=== PATIENT | female | born 1965 | race African-American/Black ===

== ENCOUNTER 2016-12-12 00:41 | Emergency (ER) | payer SELFPAY ==
[2016-12-12 00:45] VITALS: BP 138/74; BMI 39.7
--- NOTE | 2016-12-12 00:45 | DR.EXTPAIN ---
HPI - Time seen Time seen: 00:55 - Nurses notes reviewed Nurses Notes Review: Yes - Source History Provided: Patient - Mode of arrival Mode of Arrival: Ambulatory - Location Left Leg Mechanism: Fall Circumstance: Accident Description: Swelling Able to Bear Weight: Fully Able to Move Injured Body Part: Yes Pain Occurs: With Use Distal Function Deficit of Injured Body Part: Normal Amputation: N/A Discharge/Drainage: None - Context History of: None - Associated signs and symptoms Associated Signs and Symptoms: Pain, Swelling - Other history Other History: fell over package on porch PMH - PMH Past Medical History: Hypertension Past Medical History Comment: "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" Past Surgical History: Yes Surgical History: - Social History Do you use any recreational Drugs:: No ROS - Review of Systems Constitutional: No Symptoms Reported Eyes: No Symptoms Reported ENTM: No Symptoms Reported Respiratoy: No Symptoms Reported Cardiovascular: No Symptoms Reported Gastrointestinal/Abdominal: No Symptoms Reported Genitourinary: No Symptoms Reported Neurological: No Symptoms Reported Musculoskeletal: Knee, Ankle (mild swelling) Integumentary: No Symptoms Reported Hematologic/Lymphatic: No Symptoms Reported Endocrine: No Symptoms Reported Psychiatric: No Symptoms Reported PE - Vital Signs Vitals: Temperature 98.0 F Pulse Rate 89 Respiratory Rate 16 Blood Pressure [] 124/76 Blood Pressure [] 151/83 Blood Pressure 138/74 O2 Sat by Pulse Oximetry 100 - General Limitations: No Limitations General Appearance: Alert, In No Apparent Distress - Head Head Exam: Normal Inspection - Eyes Eye exam: Normal Appearance, EOMI. negative: Scleral Icterus, Conjunctival Injection - Neck Neck Exam: Normal Inspection, Full ROM, Trachea Midline - Respiratory Respiratory Exam: negative: Accessory Muscle Use, Respiratory Distress - Cardiovascular Cardiovascular Exam: Regular Rate - Extremities Extremities Exam: Normal Inspection, Full ROM, Tenderness (left knee and ankle) - Lower Extremities Hip/Pelvis Exam: Normal Inspection Upper Leg Exam: Normal Inspection Knee Exam: Normal Inspection, Full ROM, Tenderness. negative: Swelling, Abrasion Lower Leg Exam: Normal Inspection, Full ROM. negative: Tenderness, Swelling Ankle Exam: Full ROM, Tenderness, Swelling. negative: Normal Inspection, Abrasion, Laceration, Ecchymosis Neurovascular/Tendon Exam: negative: Pulse Deficit, Motor Deficit Gait Exam: Antalgic - Neurological Neurological Exam: Alert, Oriented X3, CN II-XII Intact - Psychiatric Psychiatric Exam: Normal Mood - Skin Skin Exam: Intact, Normal Color ROR - XRAY XRAY Interpreted by: Radiologist XRAY Findings: left tib/fib: no fx - Diagnosis Discharge Problem: Sprain of ankle, left Qualifiers: Encounter type: initial encounter Involved ligament of ankle: unspecified ligament Qualified Code(s): S93.402A - Sprain of unspecified ligament of left ankle, initial encounter Knee pain, acute Qualifiers: Laterality: left Qualified Code(s): M25.562 - Pain in left knee - Discharge Plan Condition: Stable Prescriptions: Tramadol HCl [ULTRAM 50 MG *] 50 mg PO Q8H PRN #21 tab PRN Reason: Pain - Follow ups/Referrals Follow ups/Referrals: TASIA LUCAS [Primary Care Provider] - 3 days - Instructions Instructions: Knee Pain, Ankle Sprain
[2016-12-12] MEDS ORDERED: HumuLIN R IV ONE (01:12)
--- NOTE | 2016-12-12 01:31 | RAD ---
EXAM: Left Lower Extremity X-ray INDICATION: Pain COMPARISION: No comparison TECHNIQUE: PA and Lat, 2 view FINDINGS: No acute fracture or dislocation. The joint spaces are preserved. The soft tissues are edematous lat erally at the ankle. No radiopaque foreign body. IMPRESSION: There is lateral soft tissue swelling at the ankle. Reported By:
[2016-12-12] MEDS ORDERED: ULTRAM PO ONE (01:42)
[2016-12-12] MEDS ORDERED: ULTRAM ONE (01:43)
[2016-12-12] MEDS ORDERED: SNACK - Diabetic Appropriate PO SCH (20:00)
== END 2016-12-12 01:47 | disposition home or self-care (01) ==
LOC: ER 00:41
DX: S93.402A Sprain of unspecified ligament of left ankle, initial encounter (principal); M25.562 Pain in left knee; W19.XXXA Unspecified fall, initial encounter
CPT/HCPCS: 29540; 73590; 99282